=== PATIENT | female | born 1975 | race Caucasian/White ===

== ENCOUNTER 2016-05-23 11:04 | Emergency (ER) | payer BC, OTHER ==
--- NOTE | 2016-05-23 11:44 | EDDOCDS ---
Nurse's Notes [facility] Name: Nakia Quispe Age: 40 yrs Sex: Female : 1975 Arrival Date: 05/23/2016 Time: 11:04 Bed TR7 Private MD: KATHARINE YEAGER DO Diagnosis: Low back pain Presentation: 05/23 11:10 Presenting complaint: Patient states: pt reports lifting granddaughter out of tub on ead Monday and had sudden onset of back pain throughout. Acute neurological deficits are not present. Mechanism of Injury: Lifting. Adult Sepsis Screening: The patient does not have new or worsening altered mentation. Patient's respiratory rate is less than 22. Systolic blood pressure is greater than 100. Patient has a qSOFA score of 0- Negative Sepsis Screen. Suicide/Homicide risk assessment- the patient denies having any suicidal and/or homicidal ideations and does not present with any other emotional, behavioral or mental health complaints. Status: Patient is not a utilities service investigator or dependent. Transition of care: patient was not received from another setting of care. 11:10 Acuity: ERNIE Level 4 ead 11:10 Method Of Arrival: Walkin/Carried/Asstd ead Triage Assessment: 11:13 General: Appears in no apparent distress, uncomfortable, Behavior is appropriate for ead age, cooperative. Pain: Location: back Pain currently is 8 out of 10 on a pain scale. HIV screening NA for this visit Offered previously. Neurological: Level of Consciousness is awake, alert, Oriented to person, place, time, Moves all extremities. Gait is steady. Derm: Skin is pink, warm & dry. Musculoskeletal: Reports pain in back. WIG STYLIST: 11:13 LMP 05/10/2016 ead Historical: - Allergies: no known allergies; - Home Meds: 1. Flexeril 10 mg Oral tab 1 tab (Last dose: 05/21/2016) - PMHx: back pain; - PSHx: Tubal ligation; - Social history: Smoking status: Patient uses tobacco products, current every day smoker. No barriers to communication noted, The patient speaks fluent Tunisian, Speaks appropriately for age. - Family history: Not pertinent. - : The pt / caregiver states he / she is not on anticoagulants. Home medication list is obtained from the patient. - Exposure Risk Screening:: None identified. Screenin:43 Screening information is obtained from the patient. Fall risk: No risks identified. rs3 Assistance ADL's: requires no assistance with activities of daily living. Abuse/DV Screen: The patient / caregiver reports he/she is: not in a situation that causes fear, pain or injury. Nutritional screening: No deficits noted. Advance Directives: Currently, there is no health care proxy. home support is adequate. Assessment: 11:23 General: Appears in no apparent distress. Respiratory: No deficits noted. GI: Abdomen jmk is flat, non- distended Bowel sounds. Vital Signs: 11:06 BP 123 / 62; Pulse 86; Resp 18 S; Temp 98.4(O); Pulse Ox 99% on R/A; Weight 68.04 kg gr2 (R); Height 5 ft. 6 in. (167.64 cm) (R); Pain 8/10; 11:06 Body Mass Index 24.21 (68.04 kg, 167.64 cm) gr2 Vitals: 11:06 Log In Time: May 23, 2016 at 11:06. gr2 ED Course: 11:05 Patient visited by Deandre Tolentino. gr2 11:05 KATHARINE YEAGER is Private Physician. gr2 11:05 Patient moved to Waiting gr2 11:08 Patient visited by Deandre Tolentino. gr2 11:08 Patient moved to Pre RCE gr2 11:12 Triage Initiated ead 11:14 Patient moved to Triage 3 ead 11:23 [facility] btw 11:23 Lowell Hills MD is Attending Physician. btw 11:23 Patient visited by Obi Ponce PA. btw 11:43 Patient moved to TR7 ar3 11:44 The patient / caregiver is instructed regarding the plan of care and ED course. rs3 11:44 No IV's were initiated during this patient's visit. No procedures done that require rs3 assistance. Order Results: There are currently no results for this order. Outcome: 11:34 Discharge ordered by Provider. btw 11:43 Discharge Assessment: patient administered narcotics - no. The following High Risk rs3 Discharge criteria are identified: None. Discharged to home with family. Condition: stable. Discharge instructions given to patient, Instructed on discharge instructions, follow up and referral plans. medication usage, Demonstrated understanding of instructions, medications, Pt was receptive of discharge instructions/ teaching. Prescriptions given X 2. No special radiology studies were completed. Property :Personal belongings accompany Pt. 11:44 Patient left the ED. rs3 Signatures: Wally Valadez,RN RN Jill Saul RN RN rs3 Daphney Keita, DEPARTMENT TRAFFIC FREIGHT ROUTER DEPARTMENT TRAFFIC FREIGHT ROUTER ar3 Obi Ponce PA PA btw Raymond, [place] 2 Belle Koenig,RN RN laura MTDD
--- NOTE | 2016-05-23 11:44 | EDDOCDS ---
Physician Documentation [facility] Name: Nakia Quispe Age: 40 yrs Sex: Female : 1975 Arrival Date: 05/23/2016 Time: 11:04 Bed TR7 Private MD: KATHARINE YEAGER DO Disposition: 05/23/16 11:34 Discharged to Home/Self Care. Impression: Low back pain. - Condition is Stable. - Discharge Instructions: Back Injury Prevention, Bpip-sy-Vhje, Back Pain, Adult, Gcue-up-Phox. - Prescriptions for Diclofenac Sodium 75 mg Oral Tablet, Delayed Release (E.C.) - take 1 tablet by ORAL route 2 times per day; 30 tablet. Robaxin- 750 750 mg Oral Tablet - take 1 tablet by ORAL route every 6 hours As needed; 40 tablet. - Work Release Form - 1 day, Medication Reconciliation, Local Pharmacy Hours form. - Follow up: Private Physician; When: Call to arrange an appointment; Reason: Further diagnostic work-up, Recheck today's complaints, Continuance of care. - Problem is an acute exacerbation. - Symptoms are unchanged. Historical: - Allergies: no known allergies; - Home Meds: 1. Flexeril 10 mg Oral tab 1 tab (Last dose: 05/21/2016) - PMHx: back pain; - PSHx: Tubal ligation; - Social history: Smoking status: Patient uses tobacco products, current every day smoker. No barriers to communication noted, The patient speaks fluent Bangladeshi, Speaks appropriately for age. - Family history: Not pertinent. - : The pt / caregiver states he / she is not on anticoagulants. Home medication list is obtained from the patient. - Exposure Risk Screening:: None identified. SALES AGENT CASUALTY INSURANCE: 05/23 11:13 LMP 05/10/2016 ead Vital Signs: 11:06 BP 123 / 62; Pulse 86; Resp 18 S; Temp 98.4(O); Pulse Ox 99% on R/A; Weight 68.04 kg / gr2 150 lbs (R); Height 5 ft. 6 in. (167.64 cm) (R); Pain 8/10; 11:06 Body Mass Index 24.21 (68.04 kg, 167.64 cm) gr2 MDM: 11:36 Financial registration complete. lg Signatures: Corey Booth, Jill Hernandez lgRN RN rs3 Obi Ponce PA PA btw [place], Emily,RN RN ead MTDD
--- NOTE | 2016-05-25 12:45 | EDDOCDS ---
Nurse's Notes [facility] Name: Nakia Quispe Age: 40 yrs Sex: Female : 1975 Arrival Date: 05/23/2016 Time: 11:04 Bed TR7 Private MD: KATHARINE YEAGER DO Diagnosis: Low back pain Presentation: 05/23 11:10 Presenting complaint: Patient states: pt reports lifting granddaughter out of tub on ead Monday and had sudden onset of back pain throughout. Acute neurological deficits are not present. Mechanism of Injury: Lifting. Adult Sepsis Screening: The patient does not have new or worsening altered mentation. Patient's respiratory rate is less than 22. Systolic blood pressure is greater than 100. Patient has a qSOFA score of 0- Negative Sepsis Screen. Suicide/Homicide risk assessment- the patient denies having any suicidal and/or homicidal ideations and does not present with any other emotional, behavioral or mental health complaints. Status: Patient is not a room service server or dependent. Transition of care: patient was not received from another setting of care. 11:10 Acuity: ERNIE Level 4 ead 11:10 Method Of Arrival: Walkin/Carried/Asstd ead Triage Assessment: 11:13 General: Appears in no apparent distress, uncomfortable, Behavior is appropriate for ead age, cooperative. Pain: Location: back Pain currently is 8 out of 10 on a pain scale. HIV screening NA for this visit Offered previously. Neurological: Level of Consciousness is awake, alert, Oriented to person, place, time, Moves all extremities. Gait is steady. Derm: Skin is pink, warm & dry. Musculoskeletal: Reports pain in back. CREDIT COLLECTIONS SPECIALIST: 11:13 LMP 05/10/2016 ead Historical: - Allergies: no known allergies; - Home Meds: 1. Flexeril 10 mg Oral tab 1 tab (Last dose: 05/21/2016) - PMHx: back pain; - PSHx: Tubal ligation; - Social history: Smoking status: Patient uses tobacco products, current every day smoker. No barriers to communication noted, The patient speaks fluent Belarusian, Speaks appropriately for age. - Family history: Not pertinent. - : The pt / caregiver states he / she is not on anticoagulants. Home medication list is obtained from the patient. - Exposure Risk Screening:: None identified. Screenin:43 Screening information is obtained from the patient. Fall risk: No risks identified. rs3 Assistance ADL's: requires no assistance with activities of daily living. Abuse/DV Screen: The patient / caregiver reports he/she is: not in a situation that causes fear, pain or injury. Nutritional screening: No deficits noted. Advance Directives: Currently, there is no health care proxy. home support is adequate. Assessment: 11:23 General: Appears in no apparent distress. Respiratory: No deficits noted. GI: Abdomen jmk is flat, non- distended Bowel sounds. Vital Signs: 11:06 BP 123 / 62; Pulse 86; Resp 18 S; Temp 98.4(O); Pulse Ox 99% on R/A; Weight 68.04 kg gr2 (R); Height 5 ft. 6 in. (167.64 cm) (R); Pain 8/10; 11:06 Body Mass Index 24.21 (68.04 kg, 167.64 cm) gr2 Vitals: 11:06 Log In Time: May 23, 2016 at 11:06. gr2 ED Course: 11:05 Patient visited by Deandre Tolentino. gr2 11:05 KATHARINE YEAGER is Private Physician. gr2 11:05 Patient moved to Waiting gr2 11:08 Patient visited by Deandre Tolentino. gr2 11:08 Patient moved to Pre RCE gr2 11:12 Triage Initiated ead 11:14 Patient moved to Triage 3 ead 11:23 [facility] btw 11:23 Lowell Hills MD is Attending Physician. btw 11:23 Patient visited by Obi Ponce PA. btw 11:43 Patient moved to TR7 ar3 11:44 The patient / caregiver is instructed regarding the plan of care and ED course. rs3 11:44 No IV's were initiated during this patient's visit. No procedures done that require rs3 assistance. 11:59 Patient name changed from Nakia\S\L\S\O'dell\S\ to Nakia\S\Juanita\S\O'dell. EDMS 12:00 [facility] Payment Agreement was scanned into [email or web address] and attached to record. lg 13:19 T-Sheet-- Draft Copy was scanned into [email or web address] and attached to record. gb Order Results: There are currently no results for this order. Outcome: 11:34 Discharge ordered by Provider. btw 11:43 Discharge Assessment: patient administered narcotics - no. The following High Risk rs3 Discharge criteria are identified: None. Discharged to home with family. Condition: stable. Discharge instructions given to patient, Instructed on discharge instructions, follow up and referral plans. medication usage, Demonstrated understanding of instructions, medications, Pt was receptive of discharge instructions/ teaching. Prescriptions given X 2. No special radiology studies were completed. Property :Personal belongings accompany Pt. 11:44 Patient left the ED. rs3 Signatures: Dispatcher [employer] EDMS Wally Valadez,RN RN haliek India Alfred, Reg Reg gb Corey Booth, Reg Reg lg Jill Villafuerte,RN RN rs3 Daphney Keita, INFRASTRUCTURE SECURITY ARCHITECT INFRASTRUCTURE SECURITY ARCHITECT ar3 Obi Ponce, ROXANE PA btw Deandre Tolentino gr2 Belle Koenig,RN RN nestord Chart Complete NICOLAS
--- NOTE | 2016-05-25 12:45 | EDDOCDS ---
Physician Documentation [facility] Name: Nakia Quispe Age: 40 yrs Sex: Female : 1975 Arrival Date: 05/23/2016 Time: 11:04 Bed TR7 Private MD: KATHARINE YEAGER DO Disposition: 05/23/16 11:34 Discharged to Home/Self Care. Impression: Low back pain. - Condition is Stable. - Discharge Instructions: Back Injury Prevention, Phfo-bo-Dydp, Back Pain, Adult, Nmso-rv-Lgpy. - Prescriptions for Diclofenac Sodium 75 mg Oral Tablet, Delayed Release (E.C.) - take 1 tablet by ORAL route 2 times per day; 30 tablet. Robaxin- 750 750 mg Oral Tablet - take 1 tablet by ORAL route every 6 hours As needed; 40 tablet. - Work Release Form - 1 day, Medication Reconciliation, Local Pharmacy Hours form. - Follow up: Private Physician; When: Call to arrange an appointment; Reason: Further diagnostic work-up, Recheck today's complaints, Continuance of care. - Problem is an acute exacerbation. - Symptoms are unchanged. Historical: - Allergies: no known allergies; - Home Meds: 1. Flexeril 10 mg Oral tab 1 tab (Last dose: 05/21/2016) - PMHx: back pain; - PSHx: Tubal ligation; - Social history: Smoking status: Patient uses tobacco products, current every day smoker. No barriers to communication noted, The patient speaks fluent Macedonian, Speaks appropriately for age. - Family history: Not pertinent. - : The pt / caregiver states he / she is not on anticoagulants. Home medication list is obtained from the patient. - Exposure Risk Screening:: None identified. CARD CHECKER: 05/23 11:13 LMP 05/10/2016 ead Vital Signs: 11:06 BP 123 / 62; Pulse 86; Resp 18 S; Temp 98.4(O); Pulse Ox 99% on R/A; Weight 68.04 kg / gr2 150 lbs (R); Height 5 ft. 6 in. (167.64 cm) (R); Pain 8/10; 11:06 Body Mass Index 24.21 (68.04 kg, 167.64 cm) gr2 MDM: 11:36 Financial registration complete. lg 12:00 [facility] Payment Agreement was scanned into [employer] and attached to record. lg 13:19 T-Sheet-- Draft Copy was scanned into MEDHOST and attached to record. gb Signatures: India Alfred, Reg Reg gb Corey Booth, Reg Reg lg Jill Villafuerte,RN RN rs3 Obi Ponce PA PA btw Belle KoenigRN RN ead The chart was reviewed and I authenticate all verbal orders and agree with the evaluation and treatment provided.Attachments: 12:00 [facility] lg 13:19 T-Sheet-- Draft Copy gb Chart Complete MTDD
--- NOTE | 2016-05-25 12:45 | EDDOCDS ---
Physician Documentation [facility] Name: Nakia Quispe Age: 40 yrs Sex: Female : 1975 Arrival Date: 05/23/2016 Time: 11:04 Bed TR7 Private MD: KATHARINE YEAGER DO Disposition: 05/23/16 11:34 Discharged to Home/Self Care. Impression: Low back pain. - Condition is Stable. - Discharge Instructions: Back Injury Prevention, Wxan-fi-Bjaw, Back Pain, Adult, Alsw-pe-Hfaw. - Prescriptions for Diclofenac Sodium 75 mg Oral Tablet, Delayed Release (E.C.) - take 1 tablet by ORAL route 2 times per day; 30 tablet. Robaxin- 750 750 mg Oral Tablet - take 1 tablet by ORAL route every 6 hours As needed; 40 tablet. - Work Release Form - 1 day, Medication Reconciliation, Local Pharmacy Hours form. - Follow up: Private Physician; When: Call to arrange an appointment; Reason: Further diagnostic work-up, Recheck today's complaints, Continuance of care. - Problem is an acute exacerbation. - Symptoms are unchanged. Historical: - Allergies: no known allergies; - Home Meds: 1. Flexeril 10 mg Oral tab 1 tab (Last dose: 05/21/2016) - PMHx: back pain; - PSHx: Tubal ligation; - Social history: Smoking status: Patient uses tobacco products, current every day smoker. No barriers to communication noted, The patient speaks fluent Portuguese, Speaks appropriately for age. - Family history: Not pertinent. - : The pt / caregiver states he / she is not on anticoagulants. Home medication list is obtained from the patient. - Exposure Risk Screening:: None identified. PRINT INSPECTOR: 05/23 11:13 LMP 05/10/2016 ead Vital Signs: 11:06 BP 123 / 62; Pulse 86; Resp 18 S; Temp 98.4(O); Pulse Ox 99% on R/A; Weight 68.04 kg / gr2 150 lbs (R); Height 5 ft. 6 in. (167.64 cm) (R); Pain 8/10; 11:06 Body Mass Index 24.21 (68.04 kg, 167.64 cm) gr2 MDM: 11:36 Financial registration complete. lg 12:00 [facility] Payment Agreement was scanned into [employer] and attached to record. lg 13:19 T-Sheet-- Draft Copy was scanned into MEDHOST and attached to record. gb Signatures: India Alfred, Reg Reg gb Corey Booth, Reg Reg lg Jill Villafuerte,RN RN rs3 Obi Ponce PA PA btw Belle KoenigRN RN ead The chart was reviewed and I authenticate all verbal orders and agree with the evaluation and treatment provided.Attachments: 12:00 [facility] [place] Payment Agreement lg 13:19 T-Sheet-- Draft Copy gb Chart Complete MTDD
== END 2016-05-23 11:44 | disposition home or self-care (01) ==
LOC: M ED 11:04
DX: M54.5 Low back pain (principal); F17.200 Nicotine dependence, unspecified, uncomplicated

== ENCOUNTER → 2019-11-06 | Outpatient (CLI) | payer OTHER ==
[2019-11-06 09:14] LABS: BASO # 0.1 10^3/uL (0.0-0.2); BASO % 0.7 % (0.0-1.0); EOS # 0.2 10^3/uL (0.0-0.5); EOS % 3.3 % (0.0-3.0); HEMATOCRIT 43.7 % (36.0-47.0); HEMOGLOBIN 13.8 g/dl (12.0-15.5); LYMPH # 2.4 10^3/uL (1.5-5.0); MEAN CORPUSCULAR HEMOGLOBIN 29.4 pg (27.0-33.0); MEAN CORPUSCULAR HGB CONC 31.6 g/dl (32.0-36.5); MEAN CORPUSCULAR VOLUME 93.2 fl (80.0-96.0); MONO # 0.7 10^3/uL (0.0-0.8); MONO % 10.5 % (0.0-5.0); NEUTROPHILS # 3.6 10^3/uL (1.5-8.5); NEUTROPHILS % 51.1 % (36.0-66.0); PLATELET COUNT, AUTOMATED 287 10^3/uL (150-450); RED BLOOD COUNT 4.69 10^6/uL (4.00-5.40); WHITE BLOOD COUNT 7.1 10^3/uL (4.0-10.0)
[2019-11-06 10:13] LABS: ALBUMIN 3.7 GM/DL (3.2-5.2); ALT/SGPT 16 U/L (12-78); BILIRUBIN,TOTAL 0.4 MG/DL (0.2-1.0); BLOOD UREA NITROGEN 22 MG/DL (7-18); CALCIUM LEVEL 9.4 MG/DL (8.5-10.1); CARBON DIOXIDE LEVEL 29 MEQ/L (21-32); CHLORIDE LEVEL 108 MEQ/L (98-107); CHOLESTEROL LEVEL 229 MG/DL (<200); CHOLESTEROL RISK RATIO 3.578 (<5); CREATININE FOR GFR 0.75 MG/DL (0.55-1.30); FREE T4 1.07 NG/DL (0.76-1.46); GLOMERULAR FILTRATION RATE > 60.0 (>58); GLUCOSE, FASTING 88 MG/DL (70-100); HDL CHOLESTEROL 64 MG/DL (>40); LDL CHOLESTEROL 144 MG/DL (<100); NON-HDL-C 165 MG/DL; POTASSIUM SERUM 4.3 MEQ/L (3.5-5.1); SODIUM LEVEL 143 MEQ/L (136-145); TRIGLYCERIDES LEVEL 105 MG/DL (<150)
== END ==
LOC: M LAB 08:35
PROVIDERS: ATTEND Family Medicine
DX: E78.2 Mixed hyperlipidemia (principal)

== ENCOUNTER → 2020-01-13 | Outpatient (CLI) | payer OTHER, SELFPAY | LOC: M LABSMTC 09:55 | PROVIDERS: ATTEND Pediatrics | DX: Z20.828 Contact with and (suspected) exposure to other viral communicable diseases (principal) | CPT/HCPCS: C9803; U0002 ==

== ENCOUNTER → 2020-03-09 | Outpatient (CLI) | payer OTHER, SELFPAY | LOC: M LABSMTC 13:00 | PROVIDERS: ATTEND Pediatrics | DX: Z20.828 Contact with and (suspected) exposure to other viral communicable diseases (principal) ==

== ENCOUNTER → 2020-03-18 | Outpatient (CLI) | payer OTHER ==
[2020-03-18 07:23] LABS: BASO # 0.1 10^3/uL (0.0-0.2); BASO % 0.8 % (0.0-1.0); EOS # 0.2 10^3/uL (0.0-0.5); EOS % 2.8 % (0.0-3.0); HEMATOCRIT 43.7 % (36.0-47.0); HEMOGLOBIN 13.7 g/dl (12.0-15.5); LYMPH # 2.5 10^3/uL (1.5-5.0); LYMPH % 33.8 % (24.0-44.0); MEAN CORPUSCULAR HEMOGLOBIN 29.2 pg (27.0-33.0); MEAN CORPUSCULAR HGB CONC 31.4 g/dl (32.0-36.5); MEAN CORPUSCULAR VOLUME 93.2 fl (80.0-96.0); MONO # 0.8 10^3/uL (0.0-0.8); MONO % 11.4 % (0.0-5.0); NEUTROPHILS # 3.8 10^3/uL (1.5-8.5); NEUTROPHILS % 50.8 % (36.0-66.0); PLATELET COUNT, AUTOMATED 309 10^3/uL (150-450); RED BLOOD COUNT 4.69 10^6/uL (4.00-5.40); WHITE BLOOD COUNT 7.4 10^3/uL (4.0-10.0)
[2020-03-18 07:58] LABS: ALBUMIN 3.9 GM/DL (3.2-5.2); ALT/SGPT 19 U/L (12-78); BILIRUBIN,TOTAL 0.3 MG/DL (0.2-1.0); BLOOD UREA NITROGEN 18 MG/DL (7-18); CALCIUM LEVEL 9.7 MG/DL (8.5-10.1); CARBON DIOXIDE LEVEL 28 MEQ/L (21-32); CHLORIDE LEVEL 107 MEQ/L (98-107); CHOLESTEROL LEVEL 276 MG/DL (<200); CHOLESTEROL RISK RATIO 3.833 (<5); FREE T4 0.95 NG/DL (0.76-1.46); GLOMERULAR FILTRATION RATE > 60.0 (>58); GLUCOSE, FASTING 83 MG/DL (70-100); HDL CHOLESTEROL 72 MG/DL (>40); LDL CHOLESTEROL 185 MG/DL (<100); NON-HDL-C 204 MG/DL; POTASSIUM SERUM 4.4 MEQ/L (3.5-5.1); SODIUM LEVEL 140 MEQ/L (136-145); TOTAL PROTEIN 7.7 GM/DL (6.4-8.2); TRIGLYCERIDES LEVEL 94 MG/DL (<150)
== END ==
LOC: M LAB 06:42
PROVIDERS: ATTEND Family Medicine
DX: Z13.220 Encounter for screening for lipoid disorders (principal); Z13.29 Encounter for screening for other suspected endocrine disorder

== ENCOUNTER → 2020-06-08 | Outpatient (CLI) | payer OTHER ==
[2020-06-08 14:26] LABS: BASO # 0.1 10^3/uL (0.0-0.2); BASO % 0.5 % (0.0-1.0); EOS % 0.3 % (0.0-3.0); HEMATOCRIT 44.4 % (36.0-47.0); LYMPH % 25.6 % (24.0-44.0); MEAN CORPUSCULAR HEMOGLOBIN 29.4 pg (27.0-33.0); MEAN CORPUSCULAR HGB CONC 31.5 g/dl (32.0-36.5); MEAN CORPUSCULAR VOLUME 93.1 fl (80.0-96.0); MONO % 8.5 % (0.0-5.0); NEUTROPHILS # 7.6 10^3/uL (1.5-8.5); NEUTROPHILS % 64.6 % (36.0-66.0); PLATELET COUNT, AUTOMATED 298 10^3/uL (150-450); RED BLOOD COUNT 4.77 10^6/uL (4.00-5.40); WHITE BLOOD COUNT 11.7 10^3/uL (4.0-10.0)
[2020-06-08 15:01] LABS: FREE T4 0.92 NG/DL (0.76-1.46); PERCENT SATURATION 12.7 % (13.2-45.0); THYROID STIMULATING HORMONE 1.07 uIU/ML (0.358-3.740)
== END ==
LOC: M LAB 13:15
PROVIDERS: ATTEND Family Medicine
DX: H53.8 Other visual disturbances (principal); R42 Dizziness and giddiness

== ENCOUNTER → 2021-03-22 | Outpatient (CLI) | payer OTHER ==
[2021-03-22 07:04] LABS: BASO # 0.1 10^3/uL (0.0-0.2); BASO % 0.9 % (0.0-1.0); EOS # 0.3 10^3/uL (0.0-0.5); EOS % 4.8 % (0.0-3.0); HEMATOCRIT 41.5 % (36.0-47.0); HEMOGLOBIN 13.4 g/dl (12.0-15.5); LYMPH % 34.7 % (24.0-44.0); MEAN CORPUSCULAR HEMOGLOBIN 30.3 pg (27.0-33.0); MEAN CORPUSCULAR HGB CONC 32.3 g/dl (32.0-36.5); MEAN CORPUSCULAR VOLUME 93.9 fl (80.0-96.0); MONO # 0.7 10^3/uL (0.0-0.8); MONO % 12.6 % (2.0-8.0); NEUTROPHILS # 2.7 10^3/uL (1.5-8.5); NEUTROPHILS % 46.7 % (36.0-66.0); PLATELET COUNT, AUTOMATED 292 10^3/uL (150-450); RED BLOOD COUNT 4.42 10^6/uL (4.00-5.40); WHITE BLOOD COUNT 5.9 10^3/uL (4.0-10.0)
[2021-03-22 07:34] LABS: ALBUMIN 3.4 GM/DL (3.2-5.2); ALT/SGPT 22 U/L (12-78); BILIRUBIN,TOTAL 0.3 MG/DL (0.2-1.0); BLOOD UREA NITROGEN 17 MG/DL (7-18); CALCIUM LEVEL 9.3 MG/DL (8.5-10.1); CARBON DIOXIDE LEVEL 27 MEQ/L (21-32); CHLORIDE LEVEL 107 MEQ/L (98-107); CHOLESTEROL LEVEL 238 MG/DL (<200); CHOLESTEROL RISK RATIO 4.103 (<5); CREATININE FOR GFR 0.71 MG/DL (0.55-1.30); FREE T4 0.98 NG/DL (0.76-1.46); GLOMERULAR FILTRATION RATE > 60.0 (>58); GLUCOSE, FASTING 94 MG/DL (70-100); HDL CHOLESTEROL 58 MG/DL (>40); LDL CHOLESTEROL 162 MG/DL (<100); NON-HDL-C 180 MG/DL; SODIUM LEVEL 141 MEQ/L (136-145); TOTAL PROTEIN 6.9 GM/DL (6.4-8.2); TRIGLYCERIDES LEVEL 89 MG/DL (<150)
== END ==
LOC: M LAB 06:29
PROVIDERS: ATTEND Family Medicine
DX: Z13.29 Encounter for screening for other suspected endocrine disorder (principal); Z13.220 Encounter for screening for lipoid disorders; Z13.0 Encounter for screening for diseases of the blood and blood-forming organs and certain disorders involving the immune mechanism

== ENCOUNTER → 2021-04-16 | Outpatient (CLI) | payer OTHER | LOC: M WHC 11:42 | PROVIDERS: ATTEND Family Medicine | DX: Z12.31 Encounter for screening mammogram for malignant neoplasm of breast (principal) ==

== ENCOUNTER → 2021-05-27 | Outpatient (REF) | payer OTHER | LOC: M LAB REF 17:11 | PROVIDERS: ATTEND Physician Assistant | DX: N39.0 Urinary tract infection, site not specified (principal) ==

== ENCOUNTER → 2022-03-28 | Outpatient (CLI) | payer OTHER ==
[2022-03-28 08:46] LABS: BASO # 0.1 10^3/uL (0.0-0.2); BASO % 0.8 % (0.0-1.0); EOS # 0.8 10^3/uL (0.0-0.5); EOS % 9.5 % (0.0-3.0); HEMATOCRIT 42.2 % (36.0-47.0); HEMOGLOBIN 12.8 g/dl (12.0-15.5); LYMPH # 2.5 10^3/uL (1.5-5.0); LYMPH % 28.5 % (24.0-44.0); MEAN CORPUSCULAR HEMOGLOBIN 25.9 pg (27.0-33.0); MEAN CORPUSCULAR HGB CONC 30.3 g/dl (32.0-36.5); MEAN CORPUSCULAR VOLUME 85.3 fl (80.0-96.0); MONO # 1.1 10^3/uL (0.0-0.8); MONO % 12.2 % (2.0-8.0); NEUTROPHILS # 4.3 10^3/uL (1.5-8.5); NEUTROPHILS % 48.5 % (36.0-66.0); PLATELET COUNT, AUTOMATED 314 10^3/uL (150-450); RED BLOOD COUNT 4.95 10^6/uL (4.00-5.40); WHITE BLOOD COUNT 8.8 10^3/uL (4.0-10.0)
[2022-03-28 09:35] LABS: ALBUMIN 3.7 GM/DL (3.2-5.2); ALT/SGPT 44 U/L (12-78); BILIRUBIN,TOTAL 0.3 MG/DL (0.2-1.0); BLOOD UREA NITROGEN 15 MG/DL (7-18); CALCIUM LEVEL 9.6 MG/DL (8.5-10.1); CARBON DIOXIDE LEVEL 28 MEQ/L (21-32); CHLORIDE LEVEL 107 MEQ/L (98-107); CHOLESTEROL LEVEL 280 MG/DL (<200); CHOLESTEROL RISK RATIO 4.666 (<5); CREATININE FOR GFR 0.68 MG/DL (0.55-1.30); FREE T4 0.84 NG/DL (0.76-1.46); GLOMERULAR FILTRATION RATE > 60.0 (>58); GLUCOSE, FASTING 96 MG/DL (70-100); HDL CHOLESTEROL 60 MG/DL (>40); LDL CHOLESTEROL 191 MG/DL (<100); NON-HDL-C 220 MG/DL; POTASSIUM SERUM 4.4 MEQ/L (3.5-5.1); SODIUM LEVEL 137 MEQ/L (136-145); TOTAL PROTEIN 7.4 GM/DL (6.4-8.2); TRIGLYCERIDES LEVEL 143 MG/DL (<150)
== END ==
LOC: M LAB 08:07
PROVIDERS: ATTEND Family Medicine
DX: Z13.29 Encounter for screening for other suspected endocrine disorder (principal); Z13.220 Encounter for screening for lipoid disorders; Z13.0 Encounter for screening for diseases of the blood and blood-forming organs and certain disorders involving the immune mechanism

== ENCOUNTER → 2022-04-18 | Outpatient (CLI) | payer OTHER | LOC: M WHC 10:54 | PROVIDERS: ATTEND Family Medicine | DX: Z12.31 Encounter for screening mammogram for malignant neoplasm of breast (principal) ==

== ENCOUNTER → 2022-05-02 | Outpatient (CLI) | payer OTHER ==
[~2022-05-02] MED LIST: CETI1SYP16 PO; ROSU10TA6
[2022-05-02 08:09] LABS: ALBUMIN 3.4 G/DL (3.2-5.2); ALKALINE PHOSPHATASE 72 U/L (46-116); ALT/SGPT 11 U/L (7.0-40); AST/SGOT 18 U/L (<34); BILIRUBIN,TOTAL 0.4 MG/DL (0.3-1.2); BLOOD UREA NITROGEN 12 MG/DL (9-23); CALCIUM LEVEL 8.8 MG/DL (8.5-10.1); CARBON DIOXIDE LEVEL 27 MMOL/L (20-31); CHLORIDE LEVEL 108 MMOL/L (98-107); CHOLESTEROL LEVEL 148 MG/DL (<200); CHOLESTEROL RISK RATIO 3.12 (<5); CREATININE FOR GFR 0.74 MG/DL (0.55-1.30); GLOMERULAR FILTRATION RATE > 60.0 (>58); GLUCOSE, FASTING 88 MG/DL (60-100); HDL CHOLESTEROL 47.4 MG/DL (>40); LDL CHOLESTEROL 78.8 MG/DL (<100); NON-HDL-C 101 MG/DL; POTASSIUM SERUM 4.2 MMOL/L (3.5-5.1); SODIUM LEVEL 140 MMOL/L (136-145); TOTAL PROTEIN 6.6 G/DL (5.7-8.2); TRIGLYCERIDES LEVEL 109 MG/DL (<150)
== END ==
LOC: M LAB 06:35
PROVIDERS: ATTEND Family Medicine
DX: E78.00 Pure hypercholesterolemia, unspecified (principal)

== ENCOUNTER → 2022-05-10 | Outpatient (CLI) | payer OTHER | LOC: M LABSMTC 09:37 | PROVIDERS: ATTEND Anesthesiology | DX: Z01.818 Encounter for other preprocedural examination (principal) ==

== ENCOUNTER 2022-05-13 06:53 | Day surgery (SDC) | payer OTHER ==
[~2022-05-13] VITALS: Ht 167.6 cm; Wt 70.9 kg
[~2022-05-13 06:53] MED LIST changes: +NS 1,000 ML IV ONE
[2022-05-13] MEDS ORDERED: propofoL 200 MG/20 ML VIAL As Ordered ONE (07:20)
[2022-05-13 08:07] VITALS: BP 105/55
== END 2022-05-13 08:22 | disposition home or self-care (01) ==
LOC: M OPP 06:53
PROVIDERS: ATTEND Surgery
DX: Z12.11 Encounter for screening for malignant neoplasm of colon (principal); K64.0 First degree hemorrhoids; E78.5 Hyperlipidemia, unspecified; F17.210 Nicotine dependence, cigarettes, uncomplicated; Z91.040 Latex allergy status; Z79.899 Other long term (current) drug therapy

== ENCOUNTER → 2022-08-09 | Outpatient (CLI) | payer OTHER ==
[~2022-08-09] MED LIST changes: -NS 1,000 ML IV ONE
== END ==
LOC: M PLALAB 10:33
PROVIDERS: ATTEND Advanced Practice Midwife
DX: Z01.419 Encounter for gynecological examination (general) (routine) without abnormal findings (principal)

== ENCOUNTER → 2022-08-09 | Outpatient (REF) | payer OTHER | LOC: M PLALAB 11:16 | PROVIDERS: ATTEND Advanced Practice Midwife | DX: Z12.4 Encounter for screening for malignant neoplasm of cervix (principal) ==

== ENCOUNTER → 2023-05-12 | Outpatient (CLI) | payer OTHER | LOC: M WHC 14:30 | PROVIDERS: ATTEND Family Medicine | DX: Z12.31 Encounter for screening mammogram for malignant neoplasm of breast (principal) ==

== ENCOUNTER → 2023-05-20 | Outpatient (CLI) | payer OTHER ==
[2023-05-20 09:43] LABS: BASO # 0.1 10^3/uL (0.0-0.2); BASO % 0.6 % (0.0-1.0); EOS # 0.2 10^3/uL (0.0-0.5); EOS % 2.7 % (0.0-3.0); HEMATOCRIT 44.3 % (36.0-47.0); HEMOGLOBIN 14.4 g/dl (12.0-15.5); LYMPH % 23.7 % (24.0-44.0); MEAN CORPUSCULAR HEMOGLOBIN 29.7 pg (27.0-33.0); MEAN CORPUSCULAR HGB CONC 32.5 g/dl (32.0-36.5); MEAN CORPUSCULAR VOLUME 91.3 fl (80.0-96.0); MONO # 0.9 10^3/uL (0.0-0.8); MONO % 10.5 % (2.0-8.0); NEUTROPHILS # 5.2 10^3/uL (1.5-8.5); NEUTROPHILS % 62.3 % (36.0-66.0); PLATELET COUNT, AUTOMATED 243 10^3/uL (150-450); RED BLOOD COUNT 4.85 10^6/uL (4.00-5.40); WHITE BLOOD COUNT 8.4 10^3/uL (4.0-10.0)
[2023-05-20 10:06] LABS: ALBUMIN 3.8 G/DL (3.2-5.2); ALKALINE PHOSPHATASE 70 U/L (46-116); ALT/SGPT 16 U/L (7.0-40); AST/SGOT 12 U/L (<34); BILIRUBIN,TOTAL 0.5 MG/DL (0.3-1.2); BLOOD UREA NITROGEN 17 MG/DL (9-23); CALCIUM LEVEL 8.9 MG/DL (8.5-10.1); CARBON DIOXIDE LEVEL 28 MMOL/L (20-31); CHLORIDE LEVEL 110 MMOL/L (98-107); CHOLESTEROL LEVEL 157 MG/DL (<200); CHOLESTEROL RISK RATIO 2.44 (<5); CREATININE FOR GFR 0.62 MG/DL (0.55-1.30); GLOMERULAR FILTRATION RATE > 60.0 (>58); GLUCOSE, FASTING 86 MG/DL (60-100); HDL CHOLESTEROL 64.1 MG/DL (>40); LDL CHOLESTEROL 78.7 MG/DL (<100); NON-HDL-C 92.9 MG/DL; POTASSIUM SERUM 4.5 MMOL/L (3.5-5.1); SODIUM LEVEL 141 MMOL/L (136-145); TRIGLYCERIDES LEVEL 71 MG/DL (<150)
[2023-05-20 10:08] LABS: FREE T4 1.08 NG/DL (0.89-1.76)
== END ==
LOC: M LAB 08:27
PROVIDERS: ATTEND Family Medicine
DX: Z13.29 Encounter for screening for other suspected endocrine disorder (principal); Z13.0 Encounter for screening for diseases of the blood and blood-forming organs and certain disorders involving the immune mechanism; Z13.220 Encounter for screening for lipoid disorders

== ENCOUNTER → 2024-04-26 | Outpatient (CLI) | payer OTHER ==
[~2024-04-26] MED LIST changes: -ROSU10TA6; +ROSU10TA61
[2024-04-26 06:56] LABS: BASO % 0.4 % (0.0-1.0); EOS # 0.2 10^3/uL (0.0-0.5); EOS % 3.1 % (0.0-3.0); HEMATOCRIT 43.7 % (36.0-47.0); HEMOGLOBIN 14.7 g/dl (12.0-15.5); LYMPH # 2.1 10^3/uL (1.5-5.0); LYMPH % 37.9 % (24.0-44.0); MEAN CORPUSCULAR HEMOGLOBIN 29.1 pg (27.0-33.0); MEAN CORPUSCULAR HGB CONC 33.6 g/dl (32.0-36.5); MEAN CORPUSCULAR VOLUME 86.4 fl (80.0-96.0); MONO # 0.8 10^3/uL (0.0-0.8); MONO % 13.9 % (2.0-8.0); NEUTROPHILS # 2.5 10^3/uL (1.5-8.5); NEUTROPHILS % 44.3 % (36.0-66.0); PLATELET COUNT, AUTOMATED 250 10^3/uL (150-450); RED BLOOD COUNT 5.06 10^6/uL (4.00-5.40); WHITE BLOOD COUNT 5.5 10^3/uL (4.0-10.0)
[2024-04-26 07:22] LABS: ALBUMIN 3.5 G/DL (3.2-5.2); ALKALINE PHOSPHATASE 122 U/L (35-104); ALT/SGPT 46 U/L (7.0-40); AST/SGOT 23 U/L (<34); BILIRUBIN,TOTAL 0.7 MG/DL (0.3-1.2); BLOOD UREA NITROGEN 17 MG/DL (9-23); CALCIUM LEVEL 10.5 MG/DL (8.5-10.1); CARBON DIOXIDE LEVEL 27 MMOL/L (20-31); CHLORIDE LEVEL 108 MMOL/L (98-107); CHOLESTEROL LEVEL 173 MG/DL (<200); CREATININE FOR GFR 0.45 MG/DL (0.55-1.30); GLOMERULAR FILTRATION RATE > 60.0 (>51); GLUCOSE, FASTING 101 MG/DL (60-100); HDL CHOLESTEROL 61.7 MG/DL (>40); LDL CHOLESTEROL 89.5 MG/DL (<100); NON-HDL-C 111.3 MG/DL; SODIUM LEVEL 142 MMOL/L (136-145); TOTAL PROTEIN 6.9 G/DL (5.7-8.2); TRIGLYCERIDES LEVEL 109 MG/DL (<150)
[2024-04-26 07:23] LABS: THYROID STIMULATING HORMONE < 0.010 uIU/ML (0.55-4.78)
[2024-04-26 07:24] LABS: THYROXINE (T4) 16.4 UG/DL (4.5-10.9)
[2024-04-26 08:44] LABS: THYROID PEROXIDASE ANTIBODY 34 U/ML (<60.0)
== END ==
LOC: M LAB 06:24
PROVIDERS: ATTEND Family Medicine
DX: E78.00 Pure hypercholesterolemia, unspecified (principal); E05.90 Thyrotoxicosis, unspecified without thyrotoxic crisis or storm; Z13.0 Encounter for screening for diseases of the blood and blood-forming organs and certain disorders involving the immune mechanism; Z13.29 Encounter for screening for other suspected endocrine disorder

== ENCOUNTER → 2024-05-13 | Outpatient (CLI) | payer OTHER | LOC: M WHC 09:44 | PROVIDERS: ATTEND Family Medicine | DX: Z12.31 Encounter for screening mammogram for malignant neoplasm of breast (principal) ==

== ENCOUNTER → 2024-05-27 | Outpatient (CLI) | payer OTHER ==
[2024-05-27 13:02] LABS: FREE T4 3.13 NG/DL (0.89-1.76); THYROID STIMULATING HORMONE < 0.010 uIU/ML (0.55-4.78); TOTAL T3 278.3 NG/DL (60.0-181.0)
== END ==
LOC: M LAB 11:44
PROVIDERS: ATTEND Nurse Practitioner Family
DX: E05.00 Thyrotoxicosis with diffuse goiter without thyrotoxic crisis or storm (principal)

== ENCOUNTER → 2024-12-06 | Outpatient (REF) | payer BC | LOC: M PLALAB 13:58 | PROVIDERS: ATTEND Advanced Practice Midwife | DX: R87.810 Cervical high risk human papillomavirus (HPV) DNA test positive (principal) ==

== ENCOUNTER → 2025-05-06 | Outpatient (CLI) | payer BC ==
[~2025-05-06] MED LIST changes: -ROSU10TA61; +ROSU10TA90
[2025-05-06 08:46] LABS: TOTAL T3 110.8 NG/DL (60.0-181.0)
[2025-05-06 08:47] LABS: FREE T4 1.24 NG/DL (0.89-1.76)
== END ==
LOC: M LAB 07:35
PROVIDERS: ATTEND Nurse Practitioner Family
DX: E05.00 Thyrotoxicosis with diffuse goiter without thyrotoxic crisis or storm (principal)